=== PATIENT | female | born 1995 | race Caucasian/White ===

== ENCOUNTER 2020-01-11 22:42 | Emergency (ER) | payer MEDICAID, OTHER ==
[2020-01-11] MEDS ORDERED: Ondansetron 4 MG/2 ML SDV IVPUSH ONE (23:02)
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
[2020-01-11] MEDS ORDERED: Ondansetron 4 MG/2 ML SDV ONE (23:03)
[2020-01-11 23:26] LABS: ANION GAP 13.6 mEq/L (7-13); CHLORIDE,CL 102 mmol/L (98-107); SODIUM,NA 139 mmol/L (136-145)
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
[2020-01-11] MEDS ORDERED: Ketorolac 30 MG/ML SDV IVPUSH ONE (23:44)
[2020-01-12] MEDS ORDERED: Acetaminophen 500 MG Tab PO ONE (00:49)
== END 2020-01-12 01:05 | disposition home or self-care (01) ==
LOC: DL.ED 22:42
DX: S16.1XXA Strain of muscle, fascia and tendon at neck level, initial encounter (principal); S39.012A Strain of muscle, fascia and tendon of lower back, initial encounter; S50.312A Abrasion of left elbow, initial encounter; S60.512A Abrasion of left hand, initial encounter; S00.91XA Abrasion of unspecified part of head, initial encounter; F41.9 Anxiety disorder, unspecified; F32.9 Major depressive disorder, single episode, unspecified; Z90.49 Acquired absence of other specified parts of digestive tract; Z98.890 Other specified postprocedural states; Z79.899 Other long term (current) drug therapy; V86.09XA Driver of other special all-terrain or other off-road motor vehicle injured in traffic accident, initial encounter
CPT/HCPCS: 36415; 70450; 72125; 73070; 73120; 80053; 81001; 85025; 96374; 96375; 99284; A9270; J1885; J2405; 73130-LT; 99283

== ENCOUNTER 2020-12-30 08:12 | Emergency (ER) | payer BC, MEDICAID, OTHER ==
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
== END 2020-12-30 09:23 | disposition home or self-care (01) ==
LOC: DL.ED 08:12
DX: H66.002 Acute suppurative otitis media without spontaneous rupture of ear drum, left ear (principal); Z72.0 Tobacco use
CPT/HCPCS: 87081; 87430; 99283

== ENCOUNTER 2022-01-02 14:18 | Emergency (ER) | payer MEDICAID ==
[2022-01-02] MEDS ORDERED: Sulfamethoxazole/Trimethoprim 800-160 MG Tab PO ONE (14:19)
[2022-01-02] MEDS ORDERED: Sulfamethoxazole/Trimethoprim 800-160 MG Tab ONE (16:08)
== END 2022-01-02 16:20 | disposition home or self-care (01) ==
LOC: DL.ED 14:18
DX: N61.0 Mastitis without abscess (principal)
CPT/HCPCS: 99283; A9270-GY

== ENCOUNTER 2022-08-01 20:24 | Emergency (ER) | payer MEDICAID ==
[2022-08-01 21:29] LABS: ANION GAP 13.4 mEq/L (7-13); CHLORIDE,CL 105 mmol/L (98-107); SODIUM,NA 139 mmol/L (136-145)
[2022-08-01 21:29] LABS: CORONAVIRUS COVID-19 NAA NEGATIVE (NEGATIVE)
[2022-08-01 21:30] LABS: ESTIMATED GFR 123 mL/min (>=60)
[2022-08-01 22:04] LABS: AMPHETAMINES,URINE NEGATIVE (NEGATIVE); BARBITURATES,URINE NEGATIVE (NEGATIVE); BENZODIAZEPINE,URINE NEGATIVE (NEGATIVE); MDMA (ECSTASY), URINE NEGATIVE (NEGATIVE); METHADONE,URINE NEGATIVE (NEGATIVE); METHAMPHETAMINES,URINE NEGATIVE (NEGATIVE); OPIATES,URINE POSITIVE (NEGATIVE); OXYCODONE,URINE NEGATIVE (NEGATIVE); PHENCYCLIDINE,URINE NEGATIVE (NEGATIVE); TCA,URINE NEGATIVE (NEGATIVE)
== END 2022-08-01 22:00 | disposition home or self-care (01) ==
LOC: DL.ED 20:24
DX: J06.9 Acute upper respiratory infection, unspecified (principal); F17.210 Nicotine dependence, cigarettes, uncomplicated; Z20.822 Contact with and (suspected) exposure to COVID-19
CPT/HCPCS: 0240U; 36415; 71045; 80053; 80305-QW; 81001; 81025; 83605; 84484; 85025; 85379; 93005; 93010; 99284; 99285

== ENCOUNTER 2025-04-27 14:05 | Emergency (ER) | payer BC, MEDICAID ==
[2025-04-27] MEDS ORDERED: Sodium Chloride 0.9% 10 ML Syringe FLUSH PRN (14:41)
[2025-04-27 14:55] LABS: BASOPHILS PERCENT AUTO 0.4 % (0.0-1.0); EOSINOPHILS PERCENT AUTO 0.6 % (1.0-3.0); LYMPHOCYTES PERCENT AUTO 16.6 % (20.5-50.1); MONOCYTES PERCENT AUTO 7.0 % (2-8); NEUTROPHILS PERCENT AUTO 75.4 % (42.2-75.2); PLATELET COUNT,PLT 361 10^3/uL (150-450); RED BLOOD CELL COUNT 4.51 10^6/uL (4.2-5.4); WHITE BLOOD CELL COUNT,WBC 8.4 10^3/uL (5.0-10.0)
[2025-04-27] MEDS ORDERED: Iopamidol 612 MG/ML 100 ML Bottle IVPUSH ONE (15:00)
[2025-04-27 15:18] LABS: A/G RATIO 1.0; ALANINE AMINOTRANSFERASE,ALT 27.0 U/L (14-59); ASPARTATE AMNIOTRANSFERASE,AST 16.0 U/L (15-37); BILIRUBIN TOTAL 0.4 mg/dL (0.2-1.0); BLOOD UREA NITROGEN,BUN 10.0 mg/dL (7-18); CARBON DIOXIDE,CO2 28.0 mmol/L (21-32); CHLORIDE,CL 103.0 mmol/L (98-107); CREATININE 0.8 mg/dL (0.55-1.02); EST CRCL DRUG DOSING (CG) 74.53 mL/min; GLUCOSE RANDOM 110.0 mg/dL (70-99); POTASSIUM,K 3.4 mmol/L (3.5-5.1); PROTEIN TOTAL,TP 8.1 g/dL (6.4-8.2); SODIUM,NA 141.0 mmol/L (136-145)
[2025-04-27 15:21] LABS: ESTIMATED GFR 102.0 mL/min (>=60)
[2025-04-27] MEDS: Ketorolac 30 MG/ML SDV IVPUSH ONE (15:57)
== END 2025-04-27 16:20 | disposition home or self-care (01) ==
LOC: DL.ED 14:05
DX: R10.84 Generalized abdominal pain (principal); K21.9 Gastro-esophageal reflux disease without esophagitis; Z79.899 Other long term (current) drug therapy
CPT/HCPCS: 36415; 74177; 80053; 81025; 83690; 85025; 93005; 96374; 99284; J1885; J7050